=== PATIENT | female | born 1990 | race African-American/Black ===

== ENCOUNTER 2018-08-05 03:39 | Emergency (ER) | payer SELFPAY ==
[~2018-08-05] VITALS: Ht 167.6 cm; Wt 68.0 kg
[2018-08-05] MEDS ORDERED: MORPHINE SULFATE 4 MG/ML CPJ (NOT FOR IM USE) IV STA (04:10)
[2018-08-05] MEDS ORDERED: SODIUM CHLORIDE 0.9% 1,000 ML IV ONE (04:10)
[2018-08-05] MEDS ORDERED: ONDANSETRON HCL 4MG/2ML INJ IV ONE (04:15)
[2018-08-05 04:37] LABS: CHLORIDE 106 mEq/L (98-107)
[2018-08-05 04:39] LABS: CLARITY URINE CLEAR (CLEAR); COLOR URINE YELLOW (YELLOW); KETONES URINE 1+ (NEGATIVE); LEUKOCYTE ESTERASE URINE 1+ (NEGATIVE); NITRITE URINE NEGATIVE (NEGATIVE); OCCULT BLOOD URINE NEGATIVE (NEGATIVE); PH URINE >=9.0 (4.5-8.0); PROTEIN URINE 2+ (NEGATIVE); SPECIFIC GRAVITY URINE 1.029 (1.005-1.030)
[2018-08-05 04:40] LABS: BASOPHILS % 0.5 % (0.0-2.0); EOSINOPHILS % 1.1 % (0.0-5.0); HEMATOCRIT. 36.1 % (36.0-48.0); HEMOGLOBIN. 12.4 g/dL (12.0-16.0); LYMPHOCYTES % 18.9 % (20.0-50.0); MEAN CORPUSCULAR HEMOGLOBIN 30.5 pg (28.0-32.0); MEAN CORPUSCULAR VOLUME 89.1 fL (81.0-99.0); MEAN PLATELET VOLUME 8.1 fl (7.4-10.4); MONOCYTES % 5.3 % (2.0-8.0); NEUTROPHILS % 74.2 % (40.0-76.0); PLATELET 194 x1000/uL (130-400); RED BLOOD CELL COUNT 4.05 mill/uL (4.2-5.4); RED CELL DISTRIBUTION WIDTH 13.7 % (11.6-14.6)
[2018-08-05 04:47] LABS: PROTHROMBIN TIME 10.5 sec (9.6-11.0)
[2018-08-05 04:59] LABS: HCG SCREEN NEGATIVE
[2018-08-05 05:16] VITALS: BP 106/37
[2018-08-05] MEDS ORDERED: IOHEXOL-300 100 ML BOTTLE ONE (06:35)
== END 2018-08-05 07:18 | disposition home or self-care (01) ==
LOC: ER 03:39
DX: R10.30 Lower abdominal pain, unspecified (principal); R10.2 Pelvic and perineal pain; F12.10 Cannabis abuse, uncomplicated; R11.2 Nausea with vomiting, unspecified
CPT/HCPCS: 36415; 74177; 76830; 76856; 80053; 81003; 81025; 83690; 84703; 85025; 85610; 96361; 96374; 96375; 99284; J2270; J2405; J7030; Q9967; Z7610